=== PATIENT | male | born 1975 | race Caucasian/White ===

== ENCOUNTER 2023-01-20 12:43 | Observation (INO) | payer OTHER ==
[~2023-01-20] VITALS: Ht 185.4 cm; Wt 110.5 kg
[2023-01-20] MEDS ORDERED: NS 1,000 ML IV ONE (13:25)
[2023-01-20] MEDS ORDERED: PRIL20TA2 PO (13:39)
[2023-01-20] MEDS ORDERED: DOXY-444 PO (13:39)
[2023-01-20 13:46] LABS: BASO % 0.4 % (0.0-1.0); EOS % 0.1 % (0.0-3.0); HEMATOCRIT 45.4 % (42.0-52.0); HEMOGLOBIN 15.6 g/dl (13.5-17.5); LYMPH % 10.7 % (24.0-44.0); MEAN CORPUSCULAR HEMOGLOBIN 30.6 pg (27.0-33.0); MEAN CORPUSCULAR HGB CONC 34.4 g/dl (32.0-36.5); MONO # 0.6 10^3/uL (0.0-0.8); MONO % 6.7 % (2.0-8.0); NEUTROPHILS # 7.6 10^3/uL (1.5-8.5); NEUTROPHILS % 81.8 % (36.0-66.0); PLATELET COUNT, AUTOMATED 366 10^3/uL (150-450); WHITE BLOOD COUNT 9.3 10^3/uL (4.0-10.0)
[2023-01-20 13:56] LABS: INR 0.91; PROTHROMBIN TIME 12.4 SECONDS (12.5-14.5)
[2023-01-20 14:19] LABS: ALBUMIN 4.2 G/DL (3.2-5.2); ALKALINE PHOSPHATASE 64 U/L (46-116); ALT/SGPT 21 U/L (7.0-40); AST/SGOT 15 U/L (<34); BILIRUBIN,DIRECT 0.3 MG/DL (<0.4); BILIRUBIN,TOTAL 0.7 MG/DL (0.3-1.2); BLOOD UREA NITROGEN 13 MG/DL (9-23); CALCIUM LEVEL 9.7 MG/DL (8.5-10.1); CARBON DIOXIDE LEVEL 24 MMOL/L (20-31); CHLORIDE LEVEL 103 MMOL/L (98-107); CK-MB VALUE MASS 1.7 NG/ML (<3.6); CREATININE FOR GFR 0.89 MG/DL (0.70-1.30); GLOMERULAR FILTRATION RATE > 60.0 (>60); GLUCOSE, FASTING 90 MG/DL (60-100); POTASSIUM SERUM 4.2 MMOL/L (3.5-5.1); SODIUM LEVEL 137 MMOL/L (136-145); TOTAL PROTEIN 7.5 G/DL (5.7-8.2)
[2023-01-20 14:27] LABS: CPK CREATINE PHOSPHOKINASE 134 U/L (46-171); MB/CK RELATIVE INDEX 1.26 (< OR =4)
[2023-01-20 15:09] LABS: CK-MB VALUE MASS 2.8 NG/ML (<3.6)
[2023-01-20 15:10] LABS: MB/CK RELATIVE INDEX 2.52 (< OR =4)
[2023-01-20] MEDS ORDERED: ONDANSETRON 4MG 2ML VIAL IV PRN (16:15)
[2023-01-20] MEDS ORDERED: MED REC IN PROGRESS XX SCH (16:25)
[2023-01-20] MEDS: LR 1,000 ML IV SCH ×2 (18:19→22:58)
[2023-01-20 20:40] LABS: CK-MB VALUE MASS 1.4 NG/ML (<3.6)
[2023-01-20 20:41] LABS: MB/CK RELATIVE INDEX 1.37 (< OR =4)
[2023-01-20] MEDS ORDERED: HOME MED LIST COMPLETE! XX SCH (22:50)
[2023-01-21 01:30] VITALS: TEMP 97.8
[2023-01-21 05:01] VITALS: BP 122/58; O2SAT 99
[2023-01-21] MEDS: LR 1,000 ML IV SCH (05:26)
[2023-01-21 06:58] LABS: MB/CK RELATIVE INDEX 1.29 (< OR =4)
[2023-01-21] MEDS ORDERED: PANTOPRAZOLE 40MG VIAL IV SCH (09:00)
== END 2023-01-21 14:30 | disposition home or self-care (01) ==
LOC: M ED 12:43 → M ED INP 12:44
PROVIDERS: ADMIT Surgery; ATTEND Surgery
DX: T75.4XXA Electrocution, initial encounter (principal); Y93.H3 Activity, building and construction; Y99.0 Civilian activity done for income or pay; Y92.61 Building [any] under construction as the place of occurrence of the external cause